=== PATIENT | female | born 1935 | race Caucasian/White ===

== ENCOUNTER → 2017-01-25 | Outpatient (CLI) | payer MEDICARE, OTHER ==
[~2017-01-25] MED LIST: AZULFIDINE 500500 MG PO; DITROPAN 5 MG TA5 MG PO; ELIQUIS 5 MG TAB5 MG PO; FENOFIBRIC ACI135 MG PO; LASIX20 MG PO; LIPITOR TAB 2020 MG PO; LOPRESSOR 50 MG50 MG PO; NEURONTIN 100100 MG PO; SYNTHROID 25 M25 MCG PO; TELMISARTAN80 MG PO; VITAMIN D250000 UNIT PO; ZETIA10 MG PO
== END ==
LOC: US 13:00
DX: I87.301 Chronic venous hypertension (idiopathic) without complications of right lower extremity (principal); M79.604 Pain in right leg; M79.89 Other specified soft tissue disorders
CPT/HCPCS: 93971

== ENCOUNTER 2017-03-29 15:13 | Inpatient (IN) | payer MEDICARE, OTHER ==
[~2017-03-29] VITALS: Ht 154.9 cm; Wt 119.3 kg
[2017-03-29 17:08] LABS: HEMOGLOBIN 11.3 gm/dl (12.3-15.3); RED BLOOD COUNT 3.67 M/UL (4.00-5.10); WHITE BLOOD COUNT 5.2 K/UL (4.5-11.0)
[2017-03-29 17:52] LABS: BUN/CREATININE RATIO 42 (0-10)
[2017-03-30] MEDS ORDERED: FENOFIBRIC ACI135 MG PO (00:02)
[2017-03-30] MEDS ORDERED: NEURONTIN 100100 MG PO (00:03)
[2017-03-30] MEDS ORDERED: SYNTHROID 25 M25 MCG PO (00:04)
[2017-03-30] MEDS ORDERED: LASIX20 MG PO (00:04)
[2017-03-30] MEDS ORDERED: LOPRESSOR 50 MG50 MG PO (00:05)
[2017-03-30] MEDS ORDERED: DITROPAN 5 MG TA5 MG PO (00:06)
[2017-03-30] MEDS ORDERED: TELMISARTAN80 MG PO (00:07)
[2017-03-30] MEDS ORDERED: AZULFIDINE 500500 MG PO (00:07)
[2017-03-30] MEDS ORDERED: VITAMIN D250000 UNIT PO (00:08)
[2017-03-30] MEDS ORDERED: ZETIA10 MG PO (00:08)
[2017-03-31 03:49] LABS: HEMOGLOBIN 10.6 gm/dl (12.3-15.3); RED BLOOD COUNT 3.49 M/UL (4.00-5.10); WHITE BLOOD COUNT 5.6 K/UL (4.5-11.0)
[2017-04-01] MEDS ORDERED: ELIQUIS 5 MG TAB5 MG PO (12:03)
[2017-04-01] MEDS ORDERED: LIPITOR TAB 2020 MG PO (12:04)
== END 2017-04-01 13:00 | disposition home health service (06) | DRG 273 ==
LOC: ER1 15:13 → PROG CARE 19:02 → ZEROF 19:02 → PROG CARE 03-30 03:11
PROVIDERS: Family Medicine; Internal Medicine; ADMIT Family Medicine
PROC: 02563ZZ Destruction of Right Atrium, Percutaneous Approach (ICD-10-PCS; principal; 2017-03-30)
PROC: B246ZZ4 Ultrasonography of Right and Left Heart, Transesophageal (ICD-10-PCS; principal; 2017-03-30)
DX: I48.92 Unspecified atrial flutter (principal); I50.33 Acute on chronic diastolic (congestive) heart failure; E66.2 Morbid (severe) obesity with alveolar hypoventilation; I11.0 Hypertensive heart disease with heart failure; R00.2 Palpitations; I25.10 Atherosclerotic heart disease of native coronary artery without angina pectoris; E11.9 Type 2 diabetes mellitus without complications; M19.90 Unspecified osteoarthritis, unspecified site; E03.9 Hypothyroidism, unspecified; R53.81 Other malaise; Z72.3 Lack of physical exercise; M16.10 Unilateral primary osteoarthritis, unspecified hip; M17.10 Unilateral primary osteoarthritis, unspecified knee; I25.2 Old myocardial infarction; Z86.73 Personal history of transient ischemic attack (TIA), and cerebral infarction without residual deficits; Z95.1 Presence of aortocoronary bypass graft; Z82.49 Family history of ischemic heart disease and other diseases of the circulatory system; Z79.899 Other long term (current) drug therapy
CPT/HCPCS: 36415; 71010; 80048; 80053; 82550; 82553; 82962; 83874; 83880; 84443; 84484; 85025; 85027; 85610; 85730; 93005; 93312; 93320; 93609; 93621; 96374; 96375; 97110; 97116; 97530; 99284; C1730; C1766; J1200; J1644; J1940; J2250; J3010; J7040

== ENCOUNTER 2017-04-08 15:32 | Emergency (ER) | payer OTHER ==
[2017-04-08 18:29] LABS: HEMOGLOBIN 11.7 gm/dl (12.3-15.3); RED BLOOD COUNT 3.84 M/UL (4.00-5.10); WHITE BLOOD COUNT 6.2 K/UL (4.5-11.0)
[2017-04-08 18:42] LABS: BUN/CREATININE RATIO 61 (0-10)
== END 2017-04-08 21:48 | disposition home or self-care (01) ==
LOC: ER1 15:32
PROVIDERS: Student in an Organized Health Care Education/Training Program
DX: M54.5 Low back pain (principal); M25.511 Pain in right shoulder; M25.561 Pain in right knee; M25.551 Pain in right hip; R10.9 Unspecified abdominal pain; I50.9 Heart failure, unspecified; N39.0 Urinary tract infection, site not specified; L03.115 Cellulitis of right lower limb; E11.9 Type 2 diabetes mellitus without complications; E66.9 Obesity, unspecified; Z95.1 Presence of aortocoronary bypass graft; W18.39XA Other fall on same level, initial encounter; Y92.009 Unspecified place in unspecified non-institutional (private) residence as the place of occurrence of the external cause; M54.6 Pain in thoracic spine; R91.1 Solitary pulmonary nodule
CPT/HCPCS: 36415; 70450; 71260; 72125; 72128; 72131; 73030; 73564; 73590; 80053; 81001; 82550; 82553; 83690; 83874; 83880; 84484; 85025; 85610; 85730; 87077; 87086; 87186; 93005; 96360; 99285; J7050; Q9962